=== PATIENT | male | born 2005 ===

== ENCOUNTER 2025-03-07 10:10 | Inpatient (IN) | payer OTHER ==
[2025-03-07] MEDS: Ondansetron 4 MG/2 ML SDV IVPUSH ONE (10:31)
[2025-03-07 10:40] LABS: BASOPHILS ABSOLUTE AUTO 0.02 K/uL (0.00-0.30); BASOPHILS PERCENT AUTO 0.2 % (0.0-1.0); EOSINOPHILS ABSOLUTE AUTO 0.00 K/uL (0.00-0.70); EOSINOPHILS PERCENT AUTO 0.0 % (0.0-5.0); IMMATURE GRAN ABSOLUTE AUTO 0.04 K/uL (0.00-0.05); IMMATURE GRAN PERCENT AUTO 0.3 % (0.0-0.4); LYMPHOCYTES ABSOLUTE AUTO 0.51 K/uL (2.00-8.80); LYMPHOCYTES PERCENT AUTO 4.0 % (50.0-65.0); MEAN PLATELET VOLUME 9.4 fL (9.4-12.4); MONOCYTES ABSOLUTE AUTO 0.67 K/uL (0.10-1.40); MONOCYTES PERCENT AUTO 5.3 % (2.0-10.0); NEUTROPHILS ABSOLUTE AUTO 11.47 K/uL (1.50-8.50); NEUTROPHILS PERCENT AUTO 90.2 % (35.0-45.0); NRBC ABSOLUTE 0.00 K/uL (0.00-0.03); NRBC PERCENT 0.0 /100WBC (0.0-0.2); PLATELET COUNT,PLT 181 K/uL (150-400); RED BLOOD CELL COUNT 4.95 M/uL (4.52-5.90); WHITE BLOOD CELL COUNT,WBC 12.71 K/uL (4.5-13.5)
[2025-03-07 10:59] LABS: A/G RATIO 1.4 (0.9-1.6); ALANINE AMINOTRANSFERASE,ALT 13.0 IU/L (14-63); ASPARTATE AMNIOTRANSFERASE,AST 7.0 IU/L (15-37); BILIRUBIN TOTAL 0.7 mg/dL (0.2-1.0); BLOOD UREA NITROGEN,BUN 17.0 mg/dL (7.0-18.0); CARBON DIOXIDE,CO2 23.5 mmol/L (21.0-32.0); CHLORIDE,CL 102.0 mmol/L (98-107); CREATININE 1.3 mg/dL (0.8-1.3); EST CRCL DRUG DOSING (CG) 100.32 mL/min; GLUCOSE RANDOM 137.0 mg/dL (74-106); POTASSIUM,K 3.7 mmol/L (3.5-5.1); PROTEIN TOTAL,TP 7.2 g/dL (6.4-8.2); SODIUM,NA 137.0 mmol/L (136-148)
[2025-03-07] MEDS: Ketorolac 30 MG/ML SDV IVPUSH ONE (11:03)
[2025-03-07] MEDS: ceFAZolin 2 GM in Water For Injection, Sterile 20 ML IVPUSH ONE (11:04)
[2025-03-07 11:07] LABS: ESTIMATED GFR 81.0 mL/min (>60)
[2025-03-07] MEDS: Iopamidol 755 MG/ML 500 ML Multipack Bottle IVPUSH STA (11:28)
[2025-03-07] MEDS: Lidocaine 1% with EPINEPHrine 1:100,000 10 ML MDV INFILT ONE (13:12)
[2025-03-07] MEDS ORDERED: Sodium Chloride 0.9% 2.5 ML Syringe FLUSH PRN (21:14)
[2025-03-07] MEDS ORDERED: Sodium Chloride 0.9% 10 ML Syringe FLUSH PRN (21:14)
[2025-03-07] MEDS: cefTRIAXone 1 GM in Water For Injection, Sterile 10 ML IVPUSH SCH (21:30)
[2025-03-08 05:46] LABS: BASOPHILS ABSOLUTE AUTO 0.03 K/uL (0.00-0.30); BASOPHILS PERCENT AUTO 0.2 % (0.0-1.0); EOSINOPHILS ABSOLUTE AUTO 0.06 K/uL (0.00-0.70); EOSINOPHILS PERCENT AUTO 0.5 % (0.0-5.0); IMMATURE GRAN ABSOLUTE AUTO 0.05 K/uL (0.00-0.05); IMMATURE GRAN PERCENT AUTO 0.4 % (0.0-0.4); LYMPHOCYTES ABSOLUTE AUTO 0.69 K/uL (2.00-8.80); LYMPHOCYTES PERCENT AUTO 5.6 % (50.0-65.0); MEAN PLATELET VOLUME 8.9 fL (9.4-12.4); MONOCYTES ABSOLUTE AUTO 0.87 K/uL (0.10-1.40); MONOCYTES PERCENT AUTO 7.1 % (2.0-10.0); NEUTROPHILS ABSOLUTE AUTO 10.61 K/uL (1.50-8.50); NEUTROPHILS PERCENT AUTO 86.2 % (35.0-45.0); NRBC ABSOLUTE 0.00 K/uL (0.00-0.03); NRBC PERCENT 0.0 /100WBC (0.0-0.2); PLATELET COUNT,PLT 156 K/uL (150-400); RED BLOOD CELL COUNT 4.31 M/uL (4.52-5.90); WHITE BLOOD CELL COUNT,WBC 12.31 K/uL (4.5-13.5)
[2025-03-08 06:11] LABS: BLOOD UREA NITROGEN,BUN 17.0 mg/dL (7.0-18.0); CARBON DIOXIDE,CO2 25.9 mmol/L (21.0-32.0); CHLORIDE,CL 106.0 mmol/L (98-107); CREATININE 1.4 mg/dL (0.8-1.3); EST CRCL DRUG DOSING (CG) 95.91 mL/min; GLUCOSE RANDOM 105.0 mg/dL (74-106); POTASSIUM,K 3.4 mmol/L (3.5-5.1); SODIUM,NA 140.0 mmol/L (136-148)
[2025-03-08 06:33] LABS: ESTIMATED GFR 74.0 mL/min (>60)
[2025-03-08] MEDS: Potassium Chloride 20 MEQ Tab.ER PO ONE (11:24)
[2025-03-09 06:00] LABS: BASOPHILS ABSOLUTE AUTO 0.03 K/uL (0.00-0.30); BASOPHILS PERCENT AUTO 0.3 % (0.0-1.0); EOSINOPHILS ABSOLUTE AUTO 0.13 K/uL (0.00-0.70); EOSINOPHILS PERCENT AUTO 1.4 % (0.0-5.0); IMMATURE GRAN ABSOLUTE AUTO 0.04 K/uL (0.00-0.05); IMMATURE GRAN PERCENT AUTO 0.4 % (0.0-0.4); LYMPHOCYTES ABSOLUTE AUTO 1.15 K/uL (2.00-8.80); LYMPHOCYTES PERCENT AUTO 12.1 % (50.0-65.0); MEAN PLATELET VOLUME 9.3 fL (9.4-12.4); MONOCYTES ABSOLUTE AUTO 0.77 K/uL (0.10-1.40); MONOCYTES PERCENT AUTO 8.1 % (2.0-10.0); NEUTROPHILS ABSOLUTE AUTO 7.37 K/uL (1.50-8.50); NEUTROPHILS PERCENT AUTO 77.7 % (35.0-45.0); NRBC ABSOLUTE 0.00 K/uL (0.00-0.03); NRBC PERCENT 0.0 /100WBC (0.0-0.2); PLATELET COUNT,PLT 143 K/uL (150-400); RED BLOOD CELL COUNT 4.09 M/uL (4.52-5.90); WHITE BLOOD CELL COUNT,WBC 9.49 K/uL (4.5-13.5)
[2025-03-09 06:17] LABS: BLOOD UREA NITROGEN,BUN 11.0 mg/dL (7.0-18.0); CARBON DIOXIDE,CO2 26.1 mmol/L (21.0-32.0); CHLORIDE,CL 107.0 mmol/L (98-107); CREATININE 1.2 mg/dL (0.8-1.3); EST CRCL DRUG DOSING (CG) 111.9 mL/min; GLUCOSE RANDOM 99.0 mg/dL (74-106); POTASSIUM,K 3.8 mmol/L (3.5-5.1); SODIUM,NA 141.0 mmol/L (136-148)
[2025-03-09 06:24] LABS: ESTIMATED GFR 89.0 mL/min (>60)
[2025-03-10 05:26] LABS: BASOPHILS ABSOLUTE AUTO 0.02 K/uL (0.00-0.30); BASOPHILS PERCENT AUTO 0.3 % (0.0-1.0); EOSINOPHILS ABSOLUTE AUTO 0.14 K/uL (0.00-0.70); EOSINOPHILS PERCENT AUTO 2.0 % (0.0-5.0); IMMATURE GRAN ABSOLUTE AUTO 0.04 K/uL (0.00-0.05); IMMATURE GRAN PERCENT AUTO 0.6 % (0.0-0.4); LYMPHOCYTES ABSOLUTE AUTO 1.51 K/uL (2.00-8.80); LYMPHOCYTES PERCENT AUTO 21.9 % (50.0-65.0); MEAN PLATELET VOLUME 9.2 fL (9.4-12.4); MONOCYTES ABSOLUTE AUTO 0.57 K/uL (0.10-1.40); MONOCYTES PERCENT AUTO 8.3 % (2.0-10.0); NEUTROPHILS ABSOLUTE AUTO 4.62 K/uL (1.50-8.50); NEUTROPHILS PERCENT AUTO 66.9 % (35.0-45.0); NRBC ABSOLUTE 0.00 K/uL (0.00-0.03); NRBC PERCENT 0.0 /100WBC (0.0-0.2); PLATELET COUNT,PLT 177 K/uL (150-400); RED BLOOD CELL COUNT 4.66 M/uL (4.52-5.90); WHITE BLOOD CELL COUNT,WBC 6.90 K/uL (4.5-13.5)
[2025-03-10 05:54] LABS: A/G RATIO 0.9 (0.9-1.6); ALANINE AMINOTRANSFERASE,ALT 12.0 IU/L (14-63); ASPARTATE AMNIOTRANSFERASE,AST 11.0 IU/L (15-37); BILIRUBIN TOTAL 0.4 mg/dL (0.2-1.0); BLOOD UREA NITROGEN,BUN 12.0 mg/dL (7.0-18.0); CARBON DIOXIDE,CO2 27.9 mmol/L (21.0-32.0); CHLORIDE,CL 104.0 mmol/L (98-107); CREATININE 1.2 mg/dL (0.8-1.3); EST CRCL DRUG DOSING (CG) 111.9 mL/min; GLUCOSE RANDOM 101.0 mg/dL (74-106); POTASSIUM,K 3.9 mmol/L (3.5-5.1); PROTEIN TOTAL,TP 6.7 g/dL (6.4-8.2); SODIUM,NA 141.0 mmol/L (136-148)
[2025-03-10 06:03] LABS: ESTIMATED GFR 89.0 mL/min (>60)
== END 2025-03-10 15:25 | disposition home or self-care (01) | DRG 603 ==
LOC: MW.ED 10:10 → MW.MS 13:16 → OBSVTOIN 03-08 14:21 → MW.MS 03-08 15:05
PROVIDERS: ADMIT Internal Medicine; ATTEND Internal Medicine
PROC: 0S9D3ZX Drainage of Left Knee Joint, Percutaneous Approach, Diagnostic (ICD-10-PCS; principal; 2025-03-08)
DX: L03.116 Cellulitis of left lower limb (principal); Z88.0 Allergy status to penicillin; Z98.890 Other specified postprocedural states
CPT/HCPCS: 36415; 73560-26-LT; 73560-LT; 73701-26-LT; 73701-LT; 80048; 80053; 80202; 83605; 85025; 85652; 86140; 87040; 87070; 87075; 87077; 87147; 87186; 87205; 96361; 96365; 96366; 96375; 99221; 99231; 99239; 99284; 99285-25; A9270-GY; G0378; J0690; J0696; J1885; J2405; J3373; J3374; J7030; J7050; Q9967